=== PATIENT | male | born 1960 | race Two or more races ===

== ENCOUNTER 2016-06-30 10:32 | Emergency (ER) | payer BC ==
[2016-06-30 11:06] VITALS: BP 154/90
--- NOTE | 2016-06-30 12:09 | UC ---
Respiratory Complaint HPI - HPI Summary HPI Summary: Sinus pain and pressure returned since 06/11/16. Pt was seen here, did improve but relapsed 4-5 days ago; slight cough. note is reviewed. given augmentin and prednisone 20mgs tabs for acute bronchitis as well. Lung sx have resolved. Sinus pain was about 75% better at the end of the 10 days of augmentin. sinus pain and pressure persist. - History of Current Complaint Chief Complaint: UCRespiratory Stated Complaint: SINUS Time Seen by Provider: 06/30/16 12:07 - Allergies/Home Medications Allergies/Adverse Reactions: Allergies Allergy/AdvReac Type Severity Reaction Status Date / Time seasonal Allergy Congestion Uncoded 06/30/16 11:06 PMH/Surg Hx/FS Hx/Imm Hx Previously Healthy: Yes Cardiovascular History Of: Reports: Hypertension - BORDERLINE- NO MEDICATION - Surgical History Surgical History: Yes Surgery Procedure, Year, and Place: spinal surgerY - 1990 [facility]. hernia repair - 2008 [facility]. left hand surgery - 2008 [facility]. LEFT SHOULDER-04/2013-[facility] x2. KNEE SURGERY-LEFT- [facility]. right shoulder surgery 2012 - Family History Known Family History: Positive: Cardiac Disease Negative: Hypertension, Diabetes - Social History Alcohol Use: Daily Alcohol Amount: 2-3 BEERS PER DAY Substance Use Type: None Smoking Status (MU): Never Smoked Tobacco Type: Smokeless Tobacco Amount Used/How Often: One can daily Review of Systems Constitutional: Negative Skin: Negative Eyes: Negative ENT: Ear Ache, Other - right sinus pain, left ear pain Respiratory: Negative Cardiovascular: Negative Gastrointestinal: Negative Genitourinary: Negative Motor: Negative Neurovascular: Negative Musculoskeletal: Negative Neurological: Negative Psychological: Negative All Other Systems Reviewed And Are Negative: Yes Physical Exam Triage Information Reviewed: Yes Appearance: Well-Appearing, No Pain Distress, Well-Nourished - very pleasant Vital Signs: Initial Vital Signs Temp 97.9 F 06/30/16 10:59 Pulse 78 06/30/16 10:59 Resp 18 06/30/16 10:59 BP 154/90 06/30/16 10:59 Pulse Ox 98 06/30/16 10:59 Vital Signs Reviewed: Yes Eye Exam: Normal ENT Exam: Normal ENT: Positive: Hearing grossly normal, Pharynx normal, TMs normal, Muffled/ hoarse voice - + rt frontal and maxillary tenderness. Negative: Tonsillar swelling, Tonsillar exudate Dental Exam: Normal Neck exam: Normal Neck: Positive: Supple, Nontender, No Lymphadenopathy Respiratory Exam: Normal Respiratory: Positive: Lungs clear, Normal breath sounds, No respiratory distress, No accessory muscle use Cardiovascular Exam: Normal Cardiovascular: Positive: RRR, No Murmur, Pulses Normal, Brisk Capillary Refill Abdominal Exam: Normal Abdomen Description: Positive: Nontender, Soft Musculoskeletal Exam: Normal Neurological Exam: Normal Psychological Exam: Normal Skin Exam: Normal UC Diagnostic Evaluation - Laboratory O2 Sat by Pulse Oximetry: 98 Respiratory Course/Dx - Differential Dx/Diagnosis Differential Diagnosis/HQI/PQRI: Bronchitis, Lower Resp Infection, Sinusitis Provider Diagnoses: sinusitis Discharge - Discharge Plan Condition: Stable Disposition: HOME Prescriptions: Amoxicillin/Clavulanate TAB* [Augmentin TAB 875*] 875 mg PO BID #20 tab Patient Education Materials: Sinusitis (ED) Forms: *Work Release Referrals: No Primary Care Phys,NOPCP [Primary Care Provider] - Additional Instructions: Take a probiotic while you are on an antibiotic. We have given you a list of PCPs to call to establish with.
== END 2016-06-30 12:27 | disposition home or self-care (01) ==
LOC: UCCORT 10:32
DX: J32.9 Chronic sinusitis, unspecified (principal); F17.220 Nicotine dependence, chewing tobacco, uncomplicated
CPT/HCPCS: 99212; G0463

== ENCOUNTER 2019-08-19 08:30 | Emergency (ER) | payer BC ==
--- OUTSIDE RECORDS SUMMARY | 2019-08-19 08:38 | XMS REPORT | Continuity of Care Document ---
:1960 External Reference #:[id number] Author Name Ioana Monroy PA Address 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 Ioana Monroy PA Onset: 10/11 Derangement of knee Ioana Monroy PA Onset: 09/28/2017 Localized, primary osteoarthritis Ioana Monroy PA Onset: 09/28/2017 Social History Type Date Description Comments Sex Unknown Tobacco Use Start: Unknown Never Smoked Cigarettes Tobacco Use Start: Unknown Never Smoked Cigars Smokeless Tobacco Current Smokeless Tobacco User, Uses Occasionally ETOH Use Has consumed alcohol in the past Recreational Drug Use Denies Drug Use Tobacco Use Start: Unknown Patient has never smoked Smoking Status Reviewed: 06/20/19 Patient has never smoked Allergies, Adverse Reactions, Alerts Description No Known Drug Allergies Medications Description No Active Medications Medications Administered in Office Medication SIG Qnty Indications Ordering Provider Date Betamethasone Acetate & Sodium Ioana Monroy PA 06/20/2019 Phosphate 3 MG Of Each Injection Betamethasone Acetate & Sodium Ioana Monroy PA 06/20/2019 Phosphate 3 MG Of Each Injection Betamethasone Acetate & Sodium Ioana Monroy PA 05/01/2018 Phosphate 3 MG Of Each Injection Depomedrol 40mg/1cc Marian Manning MD 10/25/2017 (methylprednisolone acetate) Injection Immunizations Description No Information Available Vital Signs Date Vital Result Comment 06/20/2019 11:11am BP Systolic Sitting Right Arm 154 mmHg BP Diastolic Sitting Right Arm 97 mmHg Heart Rate 88 /min Respiratory Rate 20 /min Height 72 inches 6'0" Weight 210.00 lb BMI (Body Mass Index) 28.5 kg/m2 BSA (Body Surface Area) 2.18 m2 [place] body weight in kilograms 81 kg O2 % BldC Oximetry 96 % 05/21/2018 12:49pm BP Systolic 145 mmHg BP Diastolic 90 mmHg Body Temperature 97.4 F Heart Rate 86 /min Height 72 inches 6'0" Weight 209.00 lb Pain Level 0 BMI (Body Mass Index) 28.3 kg/m2 BSA (Body Surface Area) 2.17 m2 [place] body weight in kilograms 81 kg O2 % BldC Oximetry 94 % Results Description No Information Available Procedures Date Code Description Status 06/20/2019 Injection:Tendon Sheath,Lig. Cyst Completed 06/20/2019 Injection:Tendon Sheath,Lig. Cyst Completed Medical Devices Description No Information Available Encounters Type Date Location Provider Dx Diagnosis Office Visit 06/20/2019 Orthopaedic Office Ioana Monroy, M65.311 Trigger thumb, 10:45a PA right thumb M65.321 Trigger finger, right index finger M65.351 Trigger finger, right little finger Assessments Date Code Description Provider 06/20/2019 M65.311 Trigger thumb, right thumb Ioana Monroy PA 06/20/2019 M65.321 Trigger finger, right index finger Ioana Monroy PA 06/20/2019 M65.351 Trigger finger, right little finger Ioana Monroy PA Plan of Treatment 06/20/2019 - Ioana Monroy, PAM65.311 Trigger thumb, right thumbComments: Patient did well with the middle finger injection. He denies a history of diabetes. I recommended injection today into the thumb and index finger since they bother him the most. If the small finger starts to bother him or an injection could be performed and that is well 1 week from today at the earliest. Verbal consent was obtained for right thumb and index trigger finger injection. Patient was injected today into the right thumb and index finger with 2 cc Celestone (6mg/each) and 1 cc of 1% Lidocaine after sterile prep with chlorhexidine. Patient tolerated the injection well and was dressed with a Band -Aid. Patient will return to the office on an as-needed basis.M65.321 Trigger finger, right index [id number] Trigger finger, right little finger Functional Status Description No Information Available Mental Status Description No Information Available Referrals Description No Information Available
--- NOTE | 2019-08-19 09:18 | UC ---
Throat Pain/Nasal [place] HPI - HPI Summary HPI Summary: 59-year-old male who had cough and cold symptoms approximately one month ago. He saw his primary care provider 2 weeks ago and was told he had seasonal allergies. Since then he has had continued head congestion, nasal drainage and now sinus pressure. - History of Current Complaint Stated Complaint: COLD SYMP Time Seen by Provider: 08/19/19 09:01 Hx Obtained From: Patient Onset/Duration: Gradual Onset, Lasting Weeks Severity: Moderate Cough: Nonproductive Associated Signs & Symptoms: Positive: Sinus Discomfort, Nasal Discharge Related History: Seasonal Allergies - Allergies/Home Medications Allergies/Adverse Reactions: Allergies Allergy/AdvReac Type Severity Reaction Status Date / Time seasonal Allergy Congestion Uncoded 08/19/19 09:10 Home Medications: Home Medications Amoxicillin PO (*) [Amoxicillin 875 MG (*)] 875 mg PO BID 10 Days #20 tab [Rx] Fluticasone NASAL SPRAY 50MCG* [Flonase NASAL SPRAY 50MCG*] 2 spray BOTH NARES DAILY 08/19/19 [History Confirmed 08/19/19] Loratadine 10 mg PO DAILY 08/19/19 [History Confirmed 08/19/19] PMH/Surg Hx/FS Hx/Imm Hx Previously Healthy: Yes - Surgical History Surgical History: Yes Surgery Procedure, Year, and Place[place] [facility] [place] [facility]. left hand surgery - 2008 [facility]. [place] [place] [facility] [place] right [place] surgery 2012 - Family History Known Family History: Positive: Cardiac Disease Negative: Hypertension, Diabetes - Social History Occupation: Employed Full-time Lives: With Family Alcohol Use: Daily Alcohol Amount: 2-3 BEERS PER DAY Substance Use Type: None Smoking Status (MU): Never Smoked Tobacco Type: Smokeless Tobacco Amount Used/How Often: One can daily Review of Systems All Other Systems Reviewed And Are Negative: Yes ENT: Positive: Nasal Discharge, Sinus Congestion, Sinus Pain/Tenderness Respiratory: Positive: Cough - Nonproductive cough Is Patient Immunocompromised?: No Physical Exam Triage Information Reviewed: Yes Appearance: Well-Appearing, No Pain Distress, Well-Nourished Vital Signs Reviewed: Yes Eyes: Positive: Conjunctiva Clear ENT: Positive: Pharynx normal - Yellow purulent postnasal drainage., Nasal congestion, Nasal drainage - Yellow purulent nasal coryza, TMs normal, Uvula midline. Negative: Sinus tenderness Neck: Positive: Supple, Nontender, No Lymphadenopathy Respiratory: Positive: Lungs clear, Normal breath sounds, No respiratory distress, No accessory muscle use Cardiovascular: Positive: RRR, No Murmur, Pulses Normal, Brisk Capillary Refill Musculoskeletal Exam: Normal Neurological Exam: Normal Psychological Exam: Normal Skin Exam: Normal Throat Pain/Nasal Course/Dx - Course Course Of Treatment: Patient is comfortable here and nontoxic. He preferred to not have any days off work. - Differential Dx/Diagnosis Provider Diagnosis: Sinusitis Discharge ED - Sign-Out/Discharge Documenting (check all that apply): Patient Departure All imaging exams completed and their final reports reviewed: No Studies - Discharge Plan Condition: Good Disposition: HOME Prescriptions: Amoxicillin PO (*) [Amoxicillin 875 MG (*)] 875 mg PO BID 10 Days #20 tab Patient Education Materials: Sinusitis (ED) Referrals: [facility] [Provider Group] No Primary Care Phys,NOPCP [Primary Care Provider] - Additional Instructions: Increase fluids, [id number] cold medicines as directed, follow-up with your primary care provider if no improvement in 4 or 5 days. - Billing Disposition and Condition Condition: GOOD Disposition: Home
[2019-08-19 09:22] VITALS: BP 171/92
== END 2019-08-19 09:41 | disposition home or self-care (01) ==
LOC: UCCORT 08:30
DX: J32.9 Chronic sinusitis, unspecified (principal); R05 Cough; Z91.09 Other allergy status, other than to drugs and biological substances
CPT/HCPCS: 99212; G0463

== ENCOUNTER 2021-06-20 01:25 | Observation (INO) ==
[2021-06-20] MEDS ORDERED: Ondansetron 4 mg VIAL 2 MG/ML 2 ml VIAL IV PRN (01:46)
[2021-06-20] MEDS ORDERED: NS 0.9% 1000 ml BAG 1,000 ML IV SCH (02:00)
[2021-06-20] MEDS: cefTRIAXone 2 GM ADDV.VIAL 2 GM in NS 0.9% 100 ml BAG 100 ML IV SCH (02:35)
[2021-06-20] MEDS: Morphine 2 MG/ML SYRINGE IV PRN ×3 (02:35→13:31)
[2021-06-20 05:30] LABS: ABS Eosinophils 0.1 10^3/ul (0-0.6); ABS Lymphocytes 1.4 10^3/ul (1.0-4.8); ABS Monocytes 0.5 10^3/ul (0-0.8); ABS Neutrophils 4.2 10^3/ul (1.5-7.7); Eosinophil % 1.9 %; Hematocrit 43 % (42-52); Hemoglobin 14.7 g/dL (14.0-18.0); Lymphocyte % 21.7 %; Mean Corpuscular HGB Conc 35 g/dL (31-36); Mean Corpuscular Hemoglobin 34 pg (27-31); Mean Corpuscular Volume 98 fL (80-94); Mean Platelet Volume 7.3 fL (7.4-10.4); Platelet Count 171 10^3/uL (150-450); Red Blood Count 4.34 10^6 /uL (4.18-5.48); Red Cell Distribution Width 13 % (10-15); White Blood Count 6.2 10^3/uL (3.5-10.8)
[2021-06-20 05:48] LABS: Albumin 3.4 g/dL (3.2-5.2); Albumin/Globulin Ratio 1.5 (1-3); Calcium 7.6 mg/dL (8.6-10.3); Globulin 2.3 g/dL (2-4); Potassium 3.7 mmol/L (3.5-5.0); Total Bilirubin 0.5 mg/dL (0.2-1.0); Total Protein 5.7 g/dL (6.4-8.9); eGFR CKD-EPI 103.5 (>60)
[2021-06-20] MEDS ORDERED: Magnesium Hydroxide LIQ 30 ML UDC PO PRN (13:48)
[2021-06-21] MEDS: cefTRIAXone 2 GM ADDV.VIAL 2 GM in NS 0.9% 100 ml BAG 100 ML IV SCH (02:44)
[2021-06-21] MEDS: Morphine 2 MG/ML SYRINGE IV PRN (08:23)
[2021-06-21 11:33] VITALS: BP 144/89
[2021-06-21] MEDS ORDERED: Iohexol 300 (CONTRAST) 10 ML SDV IV ONE (12:29)
== END 2021-06-21 16:16 | disposition home or self-care (01) ==
LOC: SSU → SUATTDRO 01:27
PROVIDERS: ADMIT Student in an Organized Health Care Education/Training Program; ATTEND Internal Medicine